=== PATIENT | female | born 1995 ===

== ENCOUNTER 2022-12-26 14:05 | Emergency (ER) | payer OTHER, SELFPAY ==
[2022-12-26] VITALS (18 sets, daily range): BP systolic 82–129; BP diastolic 46–86; PULSE 41–71; RESP 12–20; TEMP 36.2; O2SAT 97–100
--- NOTE | 2022-12-26 14:25 | ECG_ITS ---
Measurements Intervals [place] Rate: 52 P: 25 [place]: 164 QRS: 83 QRSD: 90 T: 70 QT: 443 QTc: 416 Interpretive Statements SINUS BRADYCARDIA NO PREVIOUS ECG AVAILABLE FOR COMPARISON Electronically Signed On 12-26-2022 19:52:07 [employer] SERV[employer] OFFICER by Blanca Joshi M.D.
[2022-12-26] MEDS: SODIUM CHLORIDE 0.9% IV 1,000 ML 999 ML IV CONT ×2 (14:30→14:33)
[2022-12-26] MEDS: ONDANSETRON INJ 4 MG/2 ML VIAL (14:31)
[2022-12-26 14:35] LABS: Basophils Absolute Auto 0.1 K/mm3 (0.0-0.1); Basophils Percent Auto 0.6 % (0.2-1.2); Eosinophils Percent Auto 0.2 % (0-4.4); Hematocrit 43.7 % (37.0-47.0); Hemoglobin 14.6 g/dL (12.0-15.0); Immature Granulocyte Absolute 0.05 K/mm3 (0.00-0.031); Immature Granulocyte Percent A 0.4 % (0-0.5); Lymphocytes Absolute Auto 0.16 K/mm3 (0.9-3.2); Lymphocytes Percent Auto 1.4 % (18.3-44.2); Mean Corpuscular HGB Conc 33.4 g/dl (32-36); Mean Corpuscular Volume 92.8 fl (80-100); Mean Platelet Volume 9.4 fl (7.4-10.4); Monocytes Absolute Auto 0.6 K/mm3 (0.1-0.6); Monocytes Percent Auto 4.9 % (2.6-8.5); Neutrophils Absolute Auto 10.4 K/mm3 (1.3-6.7); Neutrophils Percent Auto 92.5 % (45.5-73.1); Platelet Count Result 285 k/mm3 (150-375); Red Blood Count 4.71 M/mm3 (4.2-5.4); White Blood Count 11.2 K/mm3 (4.5-10.0)
[2022-12-26 14:46] LABS: Alanine Aminotransferase 21 U/L (6-35); Albumin Level 4.9 g/dL (3.5-5.1); Alkaline Phosphatase 61 U/L (38-126); Anion Gap 8 mmol/L (8-16); Aspartate Amino Transferase 34 U/L (14-36); Blood Urea Nitrogen 24 mg/dL (7-17); Calcium 8.8 mg/dL (8.4-10.2); Carbon Dioxide 25 mmol/L (22-30); Chloride 106 mmol/L (98-107); Estimated CRCL calculation 83 ml/min; Estimated Glomerular Filt Rate > 60; Glucose 124 mg/dL (65-110); Lipase 67 U/L (23-300); Magnesium 1.6 mg/dL (1.6-2.3); Potassium 4.4 mmol/L (3.4-5.0); Sodium 139 mmol/L (137-145)
--- NOTE | 2022-12-26 15:03 | ED.NAVMDI ---
HPI - Nausea/Vomiting/Diarrhea General Chief complaint: Nausea/Vomiting/Diarrhea Stated complaint: Vomiting, Diarrhea Time Seen by Provider: 12/26/22 14:30 Source: RN notes reviewed History of Present Illness HPI Narrative: Patient presents emergency department from home for nausea vomiting diarrhea. Patient states that symptoms began this morning. States she has had numerous episodes of nausea vomiting as well as diarrhea has been unable to keep anything down. States has been associated with abdominal pain described as cramping states that with that she becomes lightheaded and feels like she is going to pass out with near syncope patient does not had a full syncopal episode she denies any fevers or chills chest pain shortness of breath. States that her sister had similar symptoms approximately a week ago Related Data Allergies Allergy/AdvReac Type Severity Reaction Status Date / Time No Known Allergies Allergy Verified 12/26/22 14:06 Review of Systems Review of Systems: Gen.: Denies fevers or chills Eyes: Denies eye pain or visual change ENT: Denies congestion Respiratory: Denies shortness of breath or cough CV: Reports near syncope GI: See HPI Musculoskeletal: Denies back pain or muscle pain Neuro: Denies numbness, tingling, weakness or focal weakness Skin: Denies rash Except as documented, all other systems reviewed and negative PMF Past Medical History Medical History (Updated 12/26/22 @ 17:28 by Aaron Fam DO) Patient denies significant medical history Family History Family History Father COVID-19 Mother COVID-19 Sibling Diabetes mellitus Hyperlipidemia Obesity COVID-19 Other Breast cancer Cerebrovascular accident Hypertension Social History Social History Smoking status: Never smoker Second hand tobacco smoke exposure: No Alcohol intake: current Substance use: never Substance use type: does not use and painkillers Living arrangements: alone Occupation/Education: occupation 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 Gender identity (if verbalized by the patient): Female Exam Narrative: APPEARANCE: No acute distress, nontoxic, resting in bed EYES: EOMI HEENT: Normocephalic, atraumatic, oral mucosa dry RESPIRATORY: No respiratory distress Clear to auscultation bilaterally with no rhonchi wheezing or rales. CARDIOVASCULAR: Regular rate and rhythm without murmurs rubs or gallops. ABDOMINAL: Soft, nontender, nondistended, no rebound or guarding MUSCULOSKELETAl: Moves all extremities. No clubbing, cyanosis or edema. NEURO: Awake and alert. Following commands, speech normal, no focal deficits SKIN:: Warm, dry. No rashes lesions or abrasions PSYCHIATRIC: Normal affect/mood, Course Course Emergency Course: Patient states she is feeling much better at this time. Able to eat and drink in ED with no emesis. Patient states that they are feeling much better at this time. Repeat abdominal exam shows the patient's abdomen to be soft and nontender. Discussed with patient results of workup and diagnosis. Discussed need for follow-up with primary care physician, reasons to return to the emergency department in proper use of medication. Patient understands and agrees to current treatment plan Vital Signs Vital signs: Vital Signs Temperature 97.2 F L 12/26/22 14:12 Pulse Rate 41 L 12/26/22 14:12 Respiratory Rate 20 12/26/22 14:12 Blood Pressure 82/46 L 12/26/22 14:12 Pulse Oximetry 98 12/26/22 14:12 Oxygen Delivery Room Air 12/26/22 14:12 Temperature 97.2 F L 12/26/22 14:12 Pulse Rate 60 12/26/22 17:00 Respiratory Rate 19 12/26/22 17:00 Blood Pressure 122/52 L 12/26/22 15:38 Pulse Oximetry 100 12/26/22 17:00 Oxygen Delivery Room Air 12/26/22 14:12 MDM - Nausea/Vomiting/Diarrhea MDM Narrative
[2022-12-26 17:18] LABS: Appearance Urine Clear (Clear); Bilirubin Urine Negative (Negative); Blood Urine Negative (Negative); Color Urine Yellow (Yellow); Glucose Urine UA Negative (Negative); Ketones Urine 2+ mg/dL (Negative); Leukocyte Esterase Ur Negative LEU/UL (Negative); Nitrate Urine Negative (Negative); Protein Urine Trace mg/dL (Negative); Specific Grav Ur 1.025 (1.001-1.035); Urobilinogen Urine 0.2 mg/dL (<2.0)
[2022-12-26 17:24] LABS: Mucus Urine Rare /lpf; RBC Urine 0-2 /hpf (0-2); Squamous Epithelial Cell Urine Rare /hpf (Few); WBC Urine 0-3 /hpf
[2022-12-26 17:29] LABS: Add Urine Microscopic? YES
== END 2022-12-26 17:30 | disposition home or self-care (01) ==
PROVIDERS: Emergency Provider Emergency Medicine; PCP Family Medicine
DX: K52.9 Noninfective gastroenteritis and colitis, unspecified (principal); R55 Syncope and collapse; R00.1 Bradycardia, unspecified
CPT/HCPCS: 36415; 80053; 81001; 81025; 83690; 83735; 85025; 93005; 96361; 96374; 99284; J2405; J7030